=== PATIENT | male | born 1960 | race Caucasian/White ===

== ENCOUNTER 2024-01-06 07:39 | Day surgery (SDC) | payer OTHER ==
[~2024-01-06] VITALS: Ht 170.2 cm; Wt 85.9 kg
[~2024-01-06 07:39] MED LIST: ANUSOL-HC30 GM PR; ASPIR-TRIN325 MG PO; ATORVASTATIN CA20 MG PO; AUGMENTIN 875-1 EACH PO; B COMPLEX1 EACH PO; DAILY MULTIPLE1 EACH PO; FLONASE ALLERG9.9 ML; IBLOOD GLUCOSE TEST STRIP 1 EA TEST VI PRN; IBUPROFEN800 MG PO; L-ARGININE500 M1 PO; LACTATED RINGER'S 1,000 ML IV SCH; LIDOCAINE HCL 1% 5 ML SDV INJ ONE; LIPITOR10 MG PO; METOPROLOL TART50 MG PO; MIDAZOLAM HCL 5 MG/5 ML VIAL IV PRN; SUDAFED 12 HOU120 MG PO; TADALAFIL5 M1 PO; TURMERIC500 M2 PO; fentaNYL citrate 100 MCG/2 ML VIAL IV PRN
[2024-01-06 08:02] VITALS: BP 153/104
[2024-01-06] MEDS ORDERED: fentaNYL citrate 100 MCG/2 ML VIAL ONE (09:25)
[2024-01-06] MEDS ORDERED: MIDAZOLAM HCL 5 MG/5 ML VIAL ONE (09:25)
--- NOTE | 2024-01-06 09:48 | NUR ---
01/06/24 0948 Shelby Narvaez 6238-PATIENT ARRIVED TO PACU ON RA RR EVEN 90% ENCOURAGED TO TAKE DEEP BREATHES O2 SAT INCREASED TO MID 90'S. PATIENT AWAKE DROWSY DENIES PAIN OR NAUSEA. ENCOURAGED TO PASS GAS. IVF INFUSING. PATIENT DOZES BACK TO SLEEP. STOP BANG SCORE OF 6 SLEEP APNEA HANDOUT TO GO HOME WITH PATIENT.
[2024-01-06 10:55] VITALS: BP 133/90
--- NOTE | 2024-01-06 13:21 | OR ---
[facility] [address], [place] [address] Signed DATE OF OPERATION: 01/06/2024 SURGEON: Lizette Lutz MD PREOPERATIVE DIAGNOSES: 1. Intermittent rectal bleeding on aspirin and status post radiation therapy. 2. Single sigmoid diverticulum. 3. External hemorrhoids. 4. Brother with appendiceal carcinoma. POSTOPERATIVE DIAGNOSES: 1. Minimal sigmoid diverticulosis. 2. Minimal to moderate internal and external hemorrhoids. PROCEDURE: Colonoscopy without biopsy. ESTIMATED BLOOD LOSS: None. INDICATIONS: Kayce is a 63-year-old gentleman, asked to see me for followup colonoscopy. We helped him in 2017 at the age of 56 with upper and lower endoscopies. We used 9 mg of Versed and 150 mcg of fentanyl to cover both cases. Apparently, he slept for most of the day. He said he did the same thing after his inguinal hernia surgery. I explained to Kayce and his we would do our best today. His initial colonoscopy was for screening purposes. He has no family history of colon cancer or polyps. We saw just a single diverticulum in the sigmoid colon. He had external hemorrhoids. We asked him to return in 10 years. In the meantime, he had a radical prostatectomy. He needed radiation therapy for salvage treatment. He has also had a mild TIA and now requires aspirin on a daily basis. He quit using the ibuprofen. He has been seeing some intermittent rectal bleeding. He also told me his brother had appendiceal cancer and . We do not know if that is an adenocarcinoma, however, that is quite common. If that is the case he would come every five years for repeat colonoscopies. His primary care provider wanted him to come and repeat the colonoscopy at this time because of the rectal bleeding. He has not done anything as far as hydrocortisone suppositories or Proctofoam for his rectal bleeding. I had met with Kayce and his in the office. I gave them a pamphlet on colonoscopy. We had reviewed the nature of the test along with the risk including, but not limited to gas bloating, crampy abdominal pain, bleeding, perforation requiring surgery, and missed diagnosis. We also reviewed the need for the Electronically Signed By: LIZETTE LUTZ MD 01/06/24 1321 PATIENT NAME: KAYCE VANG OPERATIVE REPORT DATE OF : 58 REPORT #: [id number] PHYSICIAN: LIZETTE LUTZ MD PCP: NOAH SMITH MD REPORT IS CONFIDENTIAL AND NOT TO BE RELEASED WITHOUT AUTHORIZATION [facility] [address] [place], [place] [address] Signed IV conscious sedation. We had reviewed the written instructions for the bowel prep line by line. They are both very familiar with the bowel prep. We had him hold the aspirin 3 days prior to procedure. He had expressed understanding and wished to proceed. PROCEDURE IN DETAIL: Kayce was taken into our endoscopy suite and placed in the left lateral decubitus position. He was given 6 mg of Versed and 125 mcg of fentanyl to cover the case. A digital rectal exam was performed and he does have minimal to moderate circumferential external hemorrhoids. He had good sphincter tone. There are no masses. The prostate gland is absent. The adult colonoscope had been introduced and advanced under direct visualization of the camera without difficulty up into the cecum. His prep was quite excellent. The appendiceal orifice and the ileocecal valve were easily visualized. The scope was then slowly withdrawn. We took several pictures throughout for photodocumentation. He does have just a few diverticula in the sigmoid colon. They are moderate in size, few in number and scattered about. The scope had been retroflexed in the rectum. He does have minimal to moderate internal hemorrhoid columns. He had 2 or 3 that were just a little irritated, maybe that is the source of his intermittent rectal bleeding. He had just a little irritation in the distal rectum from the digital rectal exam and his history of radiation. After this, the gas was suctioned out and the colonoscope removed. Kayce tolerated the procedure quite well. RECOMMENDATIONS: Kayce is welcome to return in 5 years for repeat screening colonoscopy based on his brother's history of appendiceal carcinoma. He should consider some daily fiber supplements such as Benefiber and he could always consider some hydrocortisone suppositories or some Proctofoam. Lizette Lutz MD ALB/MODL /[id number] cc: MD Noah Burris MD Electronically Signed By: LIZETTE LUTZ MD 01/06/24 1321 PATIENT NAME: KAYCE VANG OPERATIVE REPORT DATE OF : 58 REPORT #: [id number] PHYSICIAN: LIZETTE LUTZ MD PCP: NOAH SMITH MD REPORT IS CONFIDENTIAL AND NOT TO BE RELEASED WITHOUT AUTHORIZATION [facility] [address] [place], [place] [address] Signed Copies: LIZETTE LUTZ MD, RUSSELL BARR MD ~ Electronically Signed By: LIZETTE LUTZ MD 01/06/24 1321 PATIENT NAME: KAYCE VANG SUYAPA OPERATIVE REPORT DATE OF : 58 REPORT #: [id number] PHYSICIAN: LIZETTE LUTZ MD PCP: NOAH SMITH MD REPORT IS CONFIDENTIAL AND NOT TO BE RELEASED WITHOUT AUTHORIZATION
== END 2024-01-06 11:00 | disposition home or self-care (01) ==
LOC: DS 07:39
PROVIDERS: ATTEND Colon & Rectal Surgery
PROC: 0DJD8ZZ Inspection of Lower Intestinal Tract, Via Natural or Artificial Opening Endoscopic (ICD-10-PCS; principal; 2024-01-06 09:00)
DX: K64.8 Other hemorrhoids (principal); K64.4 Residual hemorrhoidal skin tags; K57.30 Diverticulosis of large intestine without perforation or abscess without bleeding; E78.5 Hyperlipidemia, unspecified; I10 Essential (primary) hypertension; C61 Malignant neoplasm of prostate; Z79.82 Long term (current) use of aspirin; Z80.0 Family history of malignant neoplasm of digestive organs; Z88.8 Allergy status to other drugs, medicaments and biological substances
CPT/HCPCS: 99153; G0500; J2250; J3010; J7121